=== PATIENT | female | born 1995 | race Caucasian/White ===

== ENCOUNTER 2020-11-09 18:04 | Emergency (ER) | payer BC, SELFPAY ==
[2020-11-09 18:09] VITALS: BP 124/75; PULSE 69; RESP 16; TEMP 36.8; O2SAT 98; BMI 24.7
--- NOTE | 2020-11-09 18:23 | XRR_ITS ---
PROCEDURE INFORMATION: Exam: XR Left Ankle Exam date and time: 11/09/2020 6:25 PM Age: 25 years old Clinical indication: Injury or trauma; Fall; Blunt trauma; Ankle; Left TECHNIQUE: Imaging protocol: XR Left ankle. Views: 3 or more views. COMPARISON: No relevant prior studies available. FINDINGS: Bones/joints: Bones are intact and in normal alignment. Soft tissues: Lateral soft tissue swelling. XR/XR ankle LT min 3V* [id number] IMPRESSION: No fracture identified.
--- NOTE | 2020-11-09 18:59 | ED_ITS ---
HPI - Fall General: Chief Complaint: Fall Stated Complaint: FALL ON ICE/L ANKLE INJURY Time Seen by Provider: 11/09/20 18:59 History of Present Illness: HPI Narrative: Patient is a 25-year-old female comes to the ED with left ankle injury. Injury occurred just prior to arrival. Patient slipped on ice and twisted left ankle. She now has pain and swelling in left ankle. Patient took a dose of ibuprofen before coming to the ED. Current pain is rated a 4 out of 10. Denies any head trauma or loss of consciousness. Associated symptoms-after fall: Denies abdominal pain, chest pain, headache(s), hematuria or neck pain Review of Systems Const: Denies: fever(s), chills or fatigue Eyes: Denies: change in vision or eye discomfort ENMT: Denies: throat pain, odynophagia, nasal discharge or nasal congestion Card: Denies: chest pain, palpitations, edema, swelling of feet/ankles, dyspnea on exertion or orthopnea Resp: Denies: dyspnea, productive cough or non-productive cough GI: Denies: abdominal pain, nausea, vomiting, diarrhea, constipation or hematochezia : Denies: flank pain, dysuria or hematuria Musc: Reports: extremity pain (Left ankle pain.); Denies: neck pain, back pain or extremity swelling Skin/Breast: Denies: rash or new lesions Neuro: Denies: headache(s), numbness in extremities or weakness in extremities Physical Exam Const: COMMON NORMALS: no acute distress, patient oriented x3 and alert GENERAL APPEARANCE: cooperative and comfortable HENMT: COMMON NORMALS: normocephalic HEAD & SCALP: normocephalic MOUTH: Normal oral and palatal mucosa present THROAT: posterior oropharynx normal and uvula midline Neck/C-Spine: COMMON NORMALS: supple GENERAL: Yes normal visual inspection Resp: COMMON NORMALS: normal respiratory effort, No retractions, No use of accessory muscles and clear to auscultation bilaterally AUSCULTATION: clear to auscultation bilaterally Cardio: COMMON NORMALS: regular rate, regular rhythm, S1 normal heart sound present, S2 normal heart sound present, No gallops present (Cardio), No clicks present (Cardio), No murmurs present (Cardio) and Peripheral pulses 2+ throughout RATE: regular rate RHYTHM: regular rhythm HEART SOUNDS: S1 normal heart sound present and S2 normal heart sound present PERIPHERAL PULSES: Peripheral pulses 2+ throughout GI: COMMON NORMALS: Normal to inspection, nondistended, normoactive bowel sounds present, Soft to palpation, non-tender and no masses PALPATION: Yes Soft to palpation : COMMON NORMALS: Yes no CVA tenderness BLADDER/KIDNEY EXAM: Yes no CVA tenderness Back/Pelvis: COMMON NORMALS: no CVA tenderness Extremity: LEFT LOWER EXTREMITY: Yes ankle joint Left ankle: Yes inspection (Patient has edema of ankle, no ecchymosis or deformity seen.), Yes palpation (Tenderness over anterior aspect of lateral malleolus.), Yes ROM (Limited due to pain) and Yes neurovascular exam (Neurovascular intact and pedal pulse 2+.) Neuro: COMMON NORMALS: patient oriented x3 and moves all extremities SENSORIUM/ORIENTATION: Yes alert Skin: GENERAL SKIN EXAM: dry skin Course Vital Signs: Vital signs: Vital Signs Temperature 98.2 F 11/09/20 18:09 Pulse Rate 69 11/09/20 19:03 Respiratory Rate 16 11/09/20 19:03 Blood Pressure 124/75 11/09/20 19:03 Pulse Oximetry 98 11/09/20 19:03 MDM - Fall MDM Narrative: Medical decision making narrative: Patient is a 25-year-old female comes to the ED with left ankle injury, pain and swelling. Patient fell on ice twisting left ankle. Exam shows some edema and swelling over the left ankle and tenderness upon palpation of the anterior aspect of the lateral malleolus. Neurovascular tact distally and pedal pulse 2+. Left ankle x-ray showed no acute fractures or findings. Patient was diagnosed with ankle sprain and discharged with crutches. Told to rest, ice, compress and elevate left leg. Use crutches for the next 3 days to allow for healing. Return to ED precautions given. Follow-up with PCP in 7 to 10 days for reevaluation. Take [id number] Tylenol or ibuprofen for pain. Patient understood agree with plan. Imaging Data^: Xray Ortho: Attestation: I personally reviewed and interpreted this imaging study as follows: My impression: Left ankle x-ray?no acute fractures or findings seen. Discharge Plan Discharge Patient Disposition: Home Clinical Impression: Ankle sprain Qualifiers: Encounter type: initial encounter Involved ligament of ankle: anterior talof ibular ligament Laterality: left Qualified Code(s): S93.492A - Sprain of other ligament of left ankle, initial encounter Condition: Stable Discharge Orders: Discharge ED (Routine); Ordered 11/09/20 Ordered By: Carlos Priest Referrals: Marti Palacios DO [Primary Care Provider] - Discharge Diet: Regular Discharge Activity: Limit activity as instructed and Use walker/crutches as instructed Patient Instructions: Ankle Sprain (ED) Activity Restrictions/Additional Instructions: Follow-up with medical provider as directed in 7 to 10 days to reevaluate. Use crutches and avoid weightbearing for the next 3 days to allow for healing. Then advance weightbearing as tolerated. Rest, ice and elevate left ankle. You can wrap left ankle in Shun wrap as well to help with some of the swelling. Take [id number] ibuprofen or Tylenol for pain. Return to the ER or your medical provider if condition worsens. Please read and understand discharge instructions. If any questions, please ask. 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
[2020-11-09 19:03] VITALS: BP 124/75; PULSE 69; RESP 16; O2SAT 98
== END 2020-11-09 19:26 | disposition home or self-care (01) ==
PROVIDERS: Emergency Provider Physician Assistant; PCP Family Medicine
DX: S93.492A Sprain of other ligament of left ankle, initial encounter (principal); W00.0XXA Fall on same level due to ice and snow, initial encounter
CPT/HCPCS: 73610; 99283; E0114

== ENCOUNTER → 2021-02-22 18:47 | Outpatient (BNVA) | payer BC, SELFPAY | PROVIDERS: Visit Provider Nurse Practitioner Family | DX: N39.0 Urinary tract infection, site not specified (principal) | CPT/HCPCS: 81000 ==

== ENCOUNTER 2024-10-04 07:34 | Emergency (ER) | payer BC, SELFPAY ==
[2024-10-04 07:40] VITALS: BP 141/80; PULSE 70; RESP 16; TEMP 37.1; O2SAT 98; BMI 23.3
--- NOTE | 2024-10-04 07:50 | ED_ITS ---
HPI - Abdominal Pain 2 General: Chief Complaint: Abdominal Pain Stated Complaint: abd pain Time Seen by Provider: 10/04/24 07:39 History of Present Illness: 29-year-old female presents emergency ro om complaining of epigastric discomfort. Is been going on for several weeks. She has noticed that eating sometimes makes it worse. She has not had any hematemesis or coffee-ground emesis no hematochezia or melena no dysuria urgency or frequency. She is not noticed particular foods that are specific to aggravating them. She has previously had C-sections no other abdominal surgeries. Associated Symptoms: Denies chills, dysuria and fever(s) Related Data Home Medications Medication Instructions Recorded Confirmed sertraline 50 mg tablet (Zoloft) 50 mg PO DAILY 03/02/23 10/04/24 buspirone 5 mg tablet 5 mg PO DAILY 10/04/24 10/04/24 multivitamin 1 tab PO DAILY 10/04/24 10/04/24 Previous Rx's Medication Instructions Recorded pantoprazole 40 mg tablet,delayed 40 mg PO BID #40 tabs 10/04/24 release Allergies Allergy/AdvReac Type Severity Reaction Status Date / Time adhesive Allergy ALGY-Rash Verified 03/06/24 11:11 erythromycin base Allergy Unknown Verified 03/06/24 11:11 Review of Systems 2 Const: Denies: fever(s) or chills Card: Denies: chest pain Resp: Denies: dyspnea GI: Reports: abdominal pain : Denies: dysuria, urinary frequency or urinary urgency Musc: Denies: neck pain or back pain Skin/Breast: Denies: rash PFSH ED 2 PFSH: Social History Smoking and tobacco/nicotine status: never used tobacco/nicotine Second hand smoke exposure: No Alcohol intake: current Alcohol intake frequency: holidays/special occasions only Substance/Drug Use: never Physical Exam 2 Const: GENERAL APPEARANCE: cooperative ORIENTATION/CONSCIOUSNESS: Yes awake, Yes oriented to person, Yes oriented to place and Yes oriented to time HENMT: COMMON NORMALS: normocephalic, atraumatic and hearing grossly normal bilaterally HEAD & SCALP: normocephalic and atraumatic Resp: COMMON NORMALS: normal respiratory effort, No retractions, No use of accessory muscles and clear to auscultation bilaterally AUSCULTATION: clear to auscultation bilaterally Cardio: COMMON NORMALS: regular rate, regular rhythm and No murmurs present (Cardio) RATE: regular rate RHYTHM: regular rhythm GI: COMMON NORMALS: Soft to palpation and No hepatosplenomegaly present A USCULTATION: Yes normoactive bowel sounds PALPATION: Yes Soft to palpation, No Tenderness to palpation present (GI), No Guarding due to palpation present (GI) and Yes No hepatosplenomegaly present Extremity: COMMON NORMALS: normal to inspection, capillary refill normal, no clubbing, cyanosis or edema, no calf tenderness and no pedal edema Neuro: SENSORIUM/ORIENTATION: Yes oriented to person, Yes oriented to place and Yes oriented to time Skin: COMMON NORMALS: no rashes or lesions noted GENERAL SKIN EXAM: no rashes or lesions noted Course 2 Vital Signs: Vital signs: Vital Signs Temperature 98.7 F 10/04/24 07:40 Pulse Rate 64 10/04/24 10:00 Respiratory Rate 16 10/04/24 07:40 Blood Pressure 131/68 10/04/24 10:00 Pulse Oximetry 95 10/04/24 10:00 Oxygen Delivery Me thod Room Air 10/04/24 09:20 MDM - Abdominal Pain Medical Decision Making Laboratory test unremarkable CT done also unremarkable. Given her history especially aggravated by food suspect this is related to her stomach we will start her on pantoprazole 40 twice daily for 10 days then daily. If persistent follow-up with her primary care doctor for possible further evaluation including EGD Medical Records I reviewed the patient's medical records. Lab Data I reviewed the patient's lab results. 10/04/24 07:45 10/04/24 07:45 Labs/Radiology: Radiology Impressions Abdomen/Pelvis CT 10/04/24 08:[address]: 1[address] evidence of acute intra-abdominal or pelvic pathology. 2. Additional findings, as above. COMMENTS: Consistent with the [place] [employer]'s Incidental Findings Committee white paper (J Am Monica Radiol 2018): Any incidental renal lesion less than 1 cm or classified as too small to characterize, or any incidental cystic renal lesion characterized as simple-appearing, is likely benign. No follow-up imaging is recommended for these lesions per consensus recommendations based on imaging criteria. Laboratory Results WBC 9.97 10^3/uL (3.29-11.43) 10/04/24 07:45 RBC 5.06 10^6/uL (3.85-5.65) 10/04/24 07:45 Hgb 14.30 g/dL (11.27-16.99) 10/04/24 07:45 Hct 42.7 % (36-47) 10/04/24 07:45 MCV 84.4 fl (85-98) L 10/04/24 07:45 MCH 28.3 pg (27-33) 10/04/24 07:45 MCHC 33.5 g/dL (30-55) 10/04/24 07:45 RDW 12.9 % (12.1-15.1) 10/04/24 07:45 Plt Count 399 10^3/cmm (157-399) 10/04/24 07:45 MPV 9.5 fL (7.4-10.4) 10/04/24 07:45 Neut % (Auto) 77.2 % 10/04/24 07:45 Lymph % (Auto) 16.5 % 10/04/24 07:45 [place] % (Auto) 5.1 % 10/04/24 07:45 Eos % (Auto) 0.4 % 10/04/24 07:45 Baso % (Auto) 0.4 % 10/04/24 07:45 Neut # (Auto) 7.69 10^3/uL (1.8-7.7) 10/04/24 07:45 Lymph # (Auto) 1.7 10^3/uL (0.8-4.8) 10/04/24 07:45 [place] # (Auto) 0.5 10^3/uL (0.2-0.9) 10/04/24 07:45 Eos # (Auto) 0.0 10^3/uL (0.0-0.8) 10/04/24 07:45 Baso # (Auto) 0.0 10^3/uL (0.0-0.1) 10/04/24 07:45 Nucleated RBC % (auto) 0 % 10/04/24 07:45 Nucleated RBCs # 0.0 /100WBC 10/04/24 07:45 Sodium 141 mmol/L (136-145) 10/04/24 07:45 Potassium 3.8 mmol/L (3.5-5.1) 10/04/24 07:45 Chloride 103 mmol/L (98-107) 10/04/24 07:45 Carbon Dioxide 21 mmol/L (22-29) L 10/04/24 07:45 Anion Gap 20.8 (5-19) H 10/04/24 07:45 BUN 10 mg/dL (6-20) 10/04/24 07:45 Creatinine 0.7 mg/dL (0.5-0.9) 10/04/24 07:45 GFR Calculation 97.6 mL/min (90-130) 10/04/24 07:45 Glucose 97 mg/dL (65-115) 10/04/24 07:45 Calculated Osmolality 291 mOsm/kg (285-295) 10/04/24 07:45 Calcium 9.6 mg/dL (8.5-10.5) 10/04/24 07:45 Total Bilirubin 0.6 mg/dL (0.15-1.2) 10/04/24 07:45 AST 16 U/L (0-32) 10/04/24 07:45 ALT 15 U/L (0-33) 10/04/24 07:45 Alkaline Phosphatase 67 U/L (35-105) 10/04/24 07:45 Total Protein 7.7 g/dL (6.6-8.7) 10/04/24 07:45 Albumin 5.0 g/dL (3.5-5.2) 10/04/24 07:45 Globulin 2.7 g/dL (1.3-4.6) 10/04/24 07:45 Lipase 45 U/L (13-60) 10/04/24 07:45 HCG, Qual Negative (Negative) 10/04/24 07:45 Urine Color Yellow (Yellow) 10/04/24 08:25 Urine Appearance Clear (CLEAR) 10/04/24 08:25 Urine pH 6.0 (5-7) 10/04/24 08:25 Ur Specific [place] 1.025 (1.005-1.030) 10/04/24 08:25 Urine Protein Negative (Negative) 10/04/24 08:25 Urine Glucose (UA) Negative (Normal) 10/04/24 08:25 Urine Ketones 2+ (Negative) H 10/04/24 08:25 Urine Blood Negative (Negative) 10/04/24 08:25 Urine Nitrate Negative (Negative) 10/04/24 08:25 Urine Bilirubin Negative (Negative) 10/04/24 08:25 Urine Urobilinogen 1.0 mg/dL (Negative) 10/04/24 08:25 Ur Leukocyte Esterase Negative (Negative) 10/04/24 08:25 Urine RBC 0-2 /hpf (0-2) 10/04/24 08:25 Urine WBC 0-5 /hpf (0-5) 10/04/24 08:25 Ur Squamous Epith Cells 0-5 /hpf (0-5) 10/04/24 08:25 Amorphous Sediment Not Reportable 10/04/24 08:25 Urine Bacteria None seen /hpf (NONE) 10/04/24 08:25 Hyaline Casts 0.40 /lpf 10/04/24 08:25 All radiology interpretation(s) finalized by discharge Discharge Plan Discharge Patient Disposition: Home Clinical Impression: Dyspepsia Condition: Stable Prescriptions: New pantoprazole 40 mg tablet,delayed release (DR/EC) 40 mg PO BID Qty: 40 0RF Rx Instructions: 1 p.o. twice daily x 10 days then 1 p.o. daily No Action sertraline [Zoloft] 50 mg tablet 50 mg PO DAILY buspirone 5 mg tablet 5 mg PO DAILY multivitamin [Multi-Daily] Tablet 1 tab PO DAILY Discharge Orders: Discharge ED (Routine); Ordered 10/04/24 Ordered By: Ton Ramsay Referrals: Joyce Stauffer FNP [Primary Care Provider] - Discharge Diet: As Directed Patient Instructions: Diet for Stomach Ulcers and Gastritis (ED), Gastroesophageal Reflux in Infants (ED), Opioid Safety, Pain Management Activity Restrictions/Additional Instructions: Thank you for choosing [facility] for your healthcare needs today. It is very important that you follow up as instructed or that you return to the Emergency Department should you have concerns or if your condition changes or worsens in any way. You are seen in the emergency room with complaints of epigastric discomfort. Laboratory test did not show any anemia is no sign of active bleeding in the stomach CT did not show any abnormalities liver kidney and pancreatic tests were all normal as well. Recommend that at this point started on pantoprazole which is for overproduction of acid in the stomach take 1 pill twice a day for 10 days then 1 pill daily. If you still have persistent symptoms after this follow-up with your primary care doctor and you may need to have further evaluation done including possible EGD. 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
[2024-10-04 07:56] LABS: Basophils % 0.4 %; Eosinophils % 0.4 %; Hematocrit 42.7 % (36-47); Lymphocytes # 1.7 10^3/uL (0.8-4.8); Lymphocytes % 16.5 %; Mean Corpuscular HGB Conc 33.5 g/dL (30-55); Mean Corpuscular Hemoglobin 28.3 pg (27-33); Mean Corpuscular Volume 84.4 fl (85-98); Mean Platelet Volume 9.5 fL (7.4-10.4); Monocytes # 0.5 10^3/uL (0.2-0.9); Monocytes % 5.1 %; Neutrophils # 7.69 10^3/uL (1.8-7.7); Neutrophils % 77.2 %; Nucleated Red Blood Cells % 0 %; Platelet Count 399 10^3/cmm (157-399); Red Blood Count 5.06 10^6/uL (3.85-5.65); Red Cell Distribution Width 12.9 % (12.1-15.1); White Blood Count 9.97 10^3/uL (3.29-11.43)
[2024-10-04 08:07] LABS: HCG, Serum Qual Negative (Negative)
[2024-10-04 08:20] VITALS: BP 150/82; PULSE 60; O2SAT 95
[2024-10-04 08:20] LABS: Alanine Aminotransferase 15 U/L (0-33); Alkaline Phosphatase 67 U/L (35-105); Anion Gap 20.8 (5-19); Aspartate Amino Transferase 16 U/L (0-32); Blood Urea Nitrogen 10 mg/dL (6-20); Calcium 9.6 mg/dL (8.5-10.5); Carbon Dioxide 21 mmol/L (22-29); Chloride 103 mmol/L (98-107); Creatinine Clr Calc Pharmacy 97.9516; Globulin 2.7 g/dL (1.3-4.6); Glomerular Filtration Rate 97.6 mL/min (90-130); Glucose 97 mg/dL (65-115); Lipase 45 U/L (13-60); Osmolality Calculated 291 mOsm/kg (285-295); Potassium 3.8 mmol/L (3.5-5.1); Sodium 141 mmol/L (136-145); Total Bilirubin 0.6 mg/dL (0.15-1.2); Total Protein 7.7 g/dL (6.6-8.7)
[2024-10-04 08:37] LABS: Bilirubin Urine Negative (Negative); Blood Urine Negative (Negative); Glucose Urine UA Negative (Normal); Ketones Urine 2+ (Negative); Leukocyte Esterase Urine Negative (Negative); Nitrate Urine Negative (Negative); Protein Urine Negative (Negative); Specific Gravity, Urine 1.025 (1.005-1.030); Urine Appearance Clear (CLEAR); Urine Color Yellow (Yellow)
[2024-10-04 08:40] LABS: Add Urine Microscopic? YES; Bacteria Urine None Seen /hpf; RBC Urine 0-2 /hpf (0-2); Squamous Epithelial Cell Urine 0-5 /hpf (0-5); WBC Urine 0-5 /hpf (0-5)
--- NOTE | 2024-10-04 08:46 | CTR_ITS ---
PROCEDURE INFORMATION: Exam: CT Abdomen And Pelvis With Contrast Exam date and time: 10/04/2024 9:11 AM Age: 29 years old Clinical indication: Abdominal pain; Localized; Upper; Prior surgery; Surgery date: 6+ months; Surgery type: Appy, x 2; Additional info: Abd pain TECHNIQUE: Imaging protocol: Computed tomography of the abdomen and pelvis with contrast. Axial, coronal and sagittal reformatted images were created and reviewed. Radiation optimization: All CT scans at this facility use at least one of these dose optimization techniques: automated exposure control; mA and/or kV adjustment per patient size (includes targeted exams where dose is matched to clinical indication); or iterative reconstruction. Contrast material: OMNI 350; Contrast volume: 100 ml; Contrast route: INTRAVENOUS (IV); COMPARISON: OB limited [id number] 03/15/2018 11:14 AM RADIATION DOSE METRICS: Total DLP (mGy-cm): 341.71 FINDINGS: Liver: Unremarkable. Gallbladder and biliary ducts: No radiodense gallstones. No biliary ductal dilatation. Pancreas: Unremarkable. Spleen: Unremarkable. Adrenal glands: Normal. No mass. Kidneys and ureters: 4 mm low-density right renal lesion, too small to characterize. No radiodense calculi. No hydronephrosis. Stomach and bowel: No bowel wall thickening. No obstruction. No pneumatosis. Appendix: Status post appendectomy by history. Intraperitoneal space: Trace nonspecific free pelvic fluid, likely physiologic. No organized fluid collection. No free air. Vasculature: Unremarkable. No aneurysm. Lymph nodes: No pathologically enlarged lymph nodes. Urinary bladder: Unremarkable as visualized. Reproductive: Probable involuting right ovarian corpus luteal cyst versus dominant follicle. Bones/joints: No acute osseous abnormality. Soft tissues: Unremarkable. CT/CT abdomen pelvis w con* [id number]: 1. No CT evidence of acute intra-abdominal or pelvic pathology. 2. Additional findings, as above. COMMENTS: Consistent with the [place] [employer]'s Incidental Findings Committee white paper (J Am Monica Radiol 2018): Any incidental renal lesion less than 1 cm or classified as too small to characterize, or any incidental cystic renal lesion characterized as simple-appearing, is likely benign. No follow-up imaging is recommended for these lesions per consensus recommendations based on imaging criteria.
[2024-10-04] MEDS: iohexol 350 mg/mL 500 mL Btl (per mL) IV (09:10)
[2024-10-04 09:20] VITALS: BP 125/74; PULSE 60; O2SAT 97
[2024-10-04 10:00] VITALS: BP 131/68; PULSE 64; O2SAT 95
[2024-10-04 10:35] VITALS: BP 125/61; PULSE 62; O2SAT 96
== END 2024-10-04 10:36 | disposition home or self-care (01) ==
PROVIDERS: Emergency Provider Family Medicine; PCP Nurse Practitioner Family
DX: R10.13 Epigastric pain (principal)
CPT/HCPCS: 36415; 74177; 80053; 81001; 83690; 84703; 85025; 99285